=== PATIENT | male | born 1990 | race Caucasian/White ===

== ENCOUNTER → 2024-06-25 11:18 | Outpatient (BNVA) | payer OTHER, SELFPAY | DX: Z76.89 Persons encountering health services in other specified circumstances (principal) | CPT/HCPCS: 80053; 84443; 85025 ==

== ENCOUNTER 2025-10-18 11:45 | Emergency (ER) | payer BC, SELFPAY ==
[2025-10-18 11:47] VITALS: BP 151/98; PULSE 91; RESP 16; TEMP 36.7; O2SAT 98; BMI 32.1
--- NOTE | 2025-10-18 11:51 | USR_ITS ---
PROCEDURE INFORMATION: Exam: US Scrotum Exam date and time: 10/18/2025 12:30 PM Age: 35 years old Clinical indication: Scrotum pain. Left testicular pain. TECHNIQUE: Imaging protocol: Real-time ultrasound of the scrotum and contents with color Doppler and image documentation. COMPARISON: CT abdomen pelvis w con* [id number] 10/18/2025 12:10 PM FINDINGS: The right testis measures 4.8 x 1.9 x 2.8 cm. The right testicle is homogeneous without evidence of focal mass. The left testis measures 5.1 x 2.4 x 3.1 cm. The left testicle is homogeneous without evidence of focal mass. Small left hydrocele. The right epididymis measures 1.0 x 1.0 x 0.8 cm. The right epididymis is unremarkable without focal lesion. The left epididymis measures 1.1 x 1.2 x 0.9 cm. The left epididymis is slightly prominent without significant hyperemia. Doppler interrogation of the testicles reveals arterial blood flow. US/US scrotum [id number] IMPRESSION: 1. No evidence of testicular torsion or orchitis. 2. The left epididymis is slightly prominent without significant hyperemia. 3. Small left hydrocele.
--- NOTE | 2025-10-18 11:52 | CTR_ITS ---
PROCEDURE INFORMATION: Exam: CT Abdomen And Pelvis With Contrast Exam date and time: 10/18/2025 12:10 PM Age: 35 years old Clinical indication: Left flank abdominal pain. Prior appendectomy. Flank/testicular pain TECHNIQUE: Imaging protocol: Computed tomography of the abdomen and pelvis with contrast. Radiation optimization: All CT scans at this facility use at least one of these dose optimization techniques: automated exposure control; mA and/or kV adjustment per patient size (includes targeted exams where dose is matched to clinical indication); or iterative reconstruction. Contrast material: OMNIPAQUE 350; Contrast volume: 100 ml; Contrast route: INTRAVENOUS (IV); COMPARISON: No relevant prior studies available. RADIATION DOSE METRICS: Total DLP (mGy-cm): 253 FINDINGS: Lungs: Minimal scarring or atelectasis at the lung bases. Solid nodule in the left lower lobe measuring 6.6 mm. Solid nodule in the left lower lobe measuring 6.9 mm (image 4). Ground-glass nodule in the left lower lobe measuring 6.4 mm (image 4). Heart: No pericardial effusion. Diaphragm: No hiatal hernia. Liver: The liver is enlarged measuring 19.5 cm. Gallbladder and biliary ducts: The gallbladder is unremarkable. Pancreas: The pancreas is unremarkable. Spleen: The spleen is enlarged measuring 14.8 cm. Adrenal glands: The adrenal glands are unremarkable. Kidneys and ureters: The kidneys are unremarkable. Stomach and bowel: There is mild prominence of the wall of several small bowel loops in the left abdomen. This may reflect enteritis. Correlate clinically. The colon is unremarkable. Appendix: The appendix has been removed. Intraperitoneal space: No free intraperitoneal air is seen. Trace free fluid in the pelvis. Vasculature: No abdominal aortic aneurysm. Lymph nodes: No retroperitoneal lymphadenopathy. Urinary bladder: The bladder is unremarkable. Reproductive: The prostate measures 4.3 x 4.1 cm. Bones/joints: No acute fracture is seen. Soft tissues: Small fat containing umbilical hernia. CT/CT abdomen pelvis w con* [id number] IMPRESSION: 1. No nephrolithiasis, hydronephrosis or obstructive ureteral stone. 2. Mild prominence of the wall of several small bowel loops in the left abdomen. This may reflect enteritis. Correlate clinically. 3. Solid nodules in the left lower lobe measuring up to 6.9 mm. Ground-glass nodule in the left lower lobe measuring 6.4 mm. Given that these lung nodules are larger than 6 mm, Fleischner society guidelines for pulmonary nodules identified on incomplete CT chest do not apply. Recommended follow-up CT chest in 3 months to reassess. 4. Hepatosplenomegaly. 5. Trace free fluid.
--- NOTE | 2025-10-18 11:52 | W.ED.MALEGU ---
HPI - Male Genitourinary General: Chief complaint: Urogenital-Male Stated complaint: lt testicle pain Time Seen by Provider: 10/18/25 11:50 History of Present Illness: 35-year-old man With no significant past medical history who presents emergency room from urgent care with concern for flank, low abdomen and testicular pain. This started of some back pain about a week ago and he was treated as if it was musculoskeletal. However its worsened and is now progressed to where it hurts in his left groin and down into his left testicle so he was sent to the emergency room for further evaluation. No dysuria. No fever. No injuries. No altered mental status. No vomiting. Related Data Previous Rx's ?Medication ?Instructions ?Recorded ibuprofen 800 mg tablet 800 mg PO Q8H PRN pain #60 tabs 10/12/25 methocarbamol 750 mg tablet 750 mg PO Q8H PRN pain #30 tabs 10/12/25 prednisone 20 mg tablet 60 mg (3 x 20 mg) PO DAILY 5 days 10/12/25 #15 tabs azithromycin 500 mg tablet 500 mg PO DAILY 5 days #5 tabs 10/18/25 (Zithromax) diclofenac sodium 50 mg 50 mg PO BID PRN pain #14 tabs 10/18/25 tablet,delayed release prednisone 20 mg tablet 60 mg (3 x 20 mg) PO DAILY #20 tabs 10/18/25 Allergies Allergy/AdvReac Type Severity Reaction Status Date / Time No Known Allergies Allergy Verified 10/18/25 11:51 Review of Systems Narrative: Constitutional symptoms: Negative except as documented in HPI. Skin symptoms: Negative except as documented in HPI. Eye symptoms: Negative except as documented in HPI. ENMT symptoms: Negative except as documented in HPI. Respiratory symptoms: Negative except as documented in HPI. Cardiovascular symptoms: Negative except as documented in HPI. Gastrointestinal symptoms: Negative except as documented in HPI. Genitourinary symptoms: Negative except as documented in HPI. Musculoskeletal symptoms: Negative except as documented in HPI. Neurologic symptoms: Negative except as documented in HPI. Psychiatric symptoms: Negative except as documented in HPI. Endocrine symptoms: Negative except as documented in HPI. 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 Skin: Warm, dry. Head: Normocephalic, atraumatic. Neck: Supple, trachea midline. Eye: Extraocular movements are intact. Ears, nose, mouth and throat: mucosa moist. Cardiovascular: Regular, Normal peripheral perfusion. Respiratory: Lungs are clear to auscultation, respirations are non-labored, breath sounds are equal, Symmetrical chest wall expansion. Gastrointestinal: Soft, Nontender, Non distended Musculoskeletal: Normal ROM, no deformity. Neurological: Alert and oriented, No focal neurological deficit observed. Psychiatric: Cooperative, appropriate mood & affect. 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 I reviewed the patient's medical record. Patient was seen in urgent care earlier today. I reviewed the patient's current home meds Patient takes no chronic medications. Alternate historians: Dr. Fleming called before she sent the patient. Differential diagnosis including but not limited to and based on the above HPI, review of systems and physical exam: In this patient with flank pain would have concern for: Ureterolithiasis. Urinary tract infection. Appendicitis. Cholecystitis. Musculoskeletal / back pain. Pyelonephritis. Orders placed to evaluate differential diagnosis based on the above differential, HPI and physical exam Lab Review: Laboratory results were reviewed and interpreted by myself the emergency room physician. No leukocytosis. No anemia. No renal failure. Urinalysis has some mild hematuria. Perhaps the patient passed a kidney stone but no evidence of that now. Scrotal ultrasound: No evidence of any acute processes. See full note. This was reviewed and interpreted by myself the emergency room physician. I also reviewed the radiology report. CT of the abdomen pelvis: Nodules in the left lower lobe. This was discussed with the patient. No other acute findings. This was reviewed and interpreted by myself the emergency room physician. I also reviewed the radiology report. Assessment of risk: Level of risk: Low risk Hospitalization considerations: No indication for hospitalization Reexamination: Patient remained stable. No increased work of breathing. No altered mental status. No focal motor deficits. Assessment and plan: Flank pain - Discharged home - Discussed plan with patient. Answered any questions. - Evaluation and treatment of this problem were appropriate in the emergency setting. Lab Data 10/18/25 12:10/18/25 12:01 Radiology Impressions Scrotum Ultrasound 10/18/25 11:51 IMPRESSION: 1. No evidence of testicular torsion or orchitis. 2. The left epididymis is slightly prominent without significant hyperemia. 3. Small left hydrocele. Abdomen/Pelvis CT 10/18/25 11:52 IMPRESSION: 1. No nephrolithiasis, hydronephrosis or obstructive ureteral stone. 2. Mild prominence of the wall of several small bowel loops in the left abdomen. This may reflect enteritis. Correlate clinically. 3. Solid nodules in the left lower lobe measuring up to 6.9 mm. Ground-glass nodule in the left lower lobe measuring 6.4 mm. Given that these lung nodules are larger than 6 mm, Fleischner society guidelines for pulmonary nodules identified on incomplete CT chest do not apply. Recommended follow-up CT chest in 3 months to reassess. 4. Hepatosplenomegaly. 5. Trace free fluid. Laboratory Results WBC 5.26 10^3/uL (3.29-11.43) 10/18/25 12: RBC 5.29 10^6/uL (3.85-5.65) 10/18/25 12: Hgb 15.00 g/dL (11.27-16.99) 10/18/25 12:01 Hct 44.1 % (37-53) 10/18/25 12:01 MCV 83.4 fl (82-101) 10/18/25 12:01 MCH 28.4 pg (27-33) 10/18/25 12:01 MCHC 34.0 g/dL (30-55) 10/18/25 12:01 RDW 13.0 % (12.1-15.1) 10/18/25 12:01 Plt Count 192 10^3/cmm (157-399) 10/18/25 12:01 MPV 10.3 fL (7.4-10.4) 10/18/25 12:01 Neut % (Auto) 57.2 % 10/18/25 12:01 Lymph % (Auto) 21.5 % 10/18/25 12:01 [place] % (Auto) 13.5 % 10/18/25 12:01 Eos % (Auto) 5.9 % 10/18/25 12:01 Baso % (Auto) 1.1 % 10/18/25 12:01 Neut # (Auto) 3.01 10^3/uL (1.8-7.7) 10/18/25 12:01 Lymph # (Auto) 1.1 10^3/uL (0.8-4.8) 10/18/25 12:01 [place] # (Auto) 0.7 10^3/uL (0.2-0.9) 10/18/25 12:01 Eos # (Auto) 0.3 10^3/uL (0.0-0.8) 10/18/25 12:01 Baso # (Auto) 0.1 10^3/uL (0.0-0.1) 10/18/25 12:01 Nucleated RBC % (auto) 0 % 10/18/25 12:01 Nucleated RBCs # 0.0 /100WBC 10/18/25 12:01 Sodium 138 mmol/L (136-145) 10/18/25 12:01 Potassium 3.9 mmol/L (3.5-5.1) 10/18/25 12:01 Chloride 100 mmol/L (98-107) 10/18/25 12:01 Carbon Dioxide 26 mmol/L (22-29) 10/18/25 12:01 Anion Gap 15.9 (5-19) 10/18/25 12:01 BUN 7 mg/dL (6-20) 10/18/25 12:01 Creatinine 0.9 mg/dL (0.7-1.2) 10/18/25 12:01 GFR Calculation 96.0 mL/min (90-130) 10/18/25 12:01 Glucose 104 mg/dL (65-115) 10/18/25 12:01 Calculated Osmolality 284 mOsm/kg (285-295) L 10/18/25 12:01 Calcium 9.3 mg/dL (8.5-10.5) 10/18/25 12:01 Total Bilirubin 1.0 mg/dL (0.15-1.2) 10/18/25 12:01 AST 15 U/L (0-40) 10/18/25 12:01 ALT 14 U/L (0-41) 10/18/25 12:01 Alkaline Phosphatase 55 U/L (40-130) 10/18/25 12:01 C-Reactive Protein 25.7 mg/L (0.0-4.9) H 10/18/25 12:01 Total Protein 7.5 g/dL (6.6-8.7) 10/18/25 12:01 Albumin 4.7 g/dL (3.5-5.2) 10/18/25 12:01 Globulin 2.8 g/dL (1.3-4.6) 10/18/25 12:01 Urine Color Yellow (Yellow) 10/18/25 13:05 Urine Appearance Clear (CLEAR) 10/18/25 13:05 Urine pH 7.5 (5-7) 10/18/25 13:05 Ur Specific [place] 1.041 (1.005-1.030) H 10/18/25 13:05 Urine Protein Negative (Negative) 10/18/25 13:05 Urine Glucose (UA) Negative (Normal) 10/18/25 13:05 Urine Ketones Negative (Negative) 10/18/25 13:05 Urine Blood 2+ (Negative) A 10/18/25 13:05 Urine Nitrate Negative (Negative) 10/18/25 13:05 Urine Bilirubin Negative (Negative) 10/18/25 13:05 Urine Urobilinogen 0.2 mg/dL (Negative) 10/18/25 13:05 Ur Leukocyte Esterase Negative (Negative) 10/18/25 13:05 Urine RBC 6-10 /hpf (0-2) 10/18/25 13:05 Urine WBC 0-5 /hpf (0-5) 10/18/25 13:05 Ur Squamous Epith Cells 0-5 /hpf (0-5) 10/18/25 13:05 Amorphous Sediment Not Reportable 10/18/25 13:05 Urine Bacteria None seen /hpf (NONE) 10/18/25 13:05 Hyaline Casts 0-4 /lpf H 10/18/25 13:05 All radiology interpretation(s) finalized by discharge Discharge Plan Discharge Patient Disposition: Home Clinical Impression: Flank pain, Pulmonary nodule Condition: Stable Prescriptions: New prednisone 20 mg tablet 60 mg PO DAILY Qty: 20 0RF Rx Instructions: 3 tabs (60 mg) x 3 days. 2 tabs (40 mg) x 3 days. 1 tab (20 mg) x 3 days. 1/2 tab (10 mg) x 4 days diclofenac sodium 50 mg tablet,delayed release (DR/EC) 50 mg PO BID PRN (Reason: pain) Qty: 14 0RF No Action methocarbamol 750 mg tablet 750 mg PO Q8H PRN (Reason: pain) Qty: 30 0RF ibuprofen 800 mg tablet 800 mg PO Q8H PRN (Reason: pain) Qty: 60 0RF Rx Instructions: take with food prednisone 20 mg tablet 60 mg PO DAILY 5 Days Qty: 15 0RF azithromycin [Zithromax] 500 mg tablet 500 mg PO DAILY 5 Days Qty: 5 0RF Discharge Orders: Discharge ED (Routine); Ordered 10/18/25 Ordered By: Ligia Smith Referrals: Henna Alvarez NP [Primary Care Provider, Family Practice] Discharge Diet: Usual diet Discharge Activity: Increase activity as tolerated Patient Instructions: Flank Pain (ED), Opioid Safety, Pain Management, Patient Portal & Dylan Instructions Activity Restrictions/Additional Instructions: A pulmonary nodule was seen on imaging. This will need follow up imaging with your primary provider. Please schedule an appointment concerning this. Thank you for choosing [facility] for your healthcare needs today. You have been screened and evaluated and felt safe for discharge. Health conditions do change or evolve sometimes and as such it is important that you follow up with your Primary Doctor to be re checked, 3-5 days is a general good time frame for follow up. You are always welcome to return to the ED for re assessment if your symptoms are worsening or you have new concerns (Please note that included in your discharge packet is information concerning opioid safety and pain management. This information is given to all patients who are discharged from the ER regardless of their discharge diagnosis or the medicines they usually take or are prescribed.) Print Language: Nicaraguan Coding Level of Care Code ED Junior Accounting Clerk for Varun Holcomb
[2025-10-18 12:06] VITALS: O2SAT 98
[2025-10-18 12:09] LABS: Hematocrit 44.1 % (37-53); Hemoglobin 15.00 g/dL (11.27-16.99); Mean Corpuscular HGB Conc 34.0 g/dL (30-55); Mean Corpuscular Hemoglobin 28.4 pg (27-33); Mean Corpuscular Volume 83.4 fl (82-101); Nucleated Red Blood Cells % 0 %; Platelet Count 192 10^3/cmm (157-399); Red Blood Count 5.29 10^6/uL (3.85-5.65); White Blood Count 5.26 10^3/uL (3.29-11.43)
[2025-10-18] MEDS: iohexol 350 mg/mL 500 mL Btl (per mL) IV (12:13)
[2025-10-18 12:15] VITALS: BP 151/97
[2025-10-18 12:26] LABS: Alanine Aminotransferase 14 U/L (0-41); Albumin Level 4.7 g/dL (3.5-5.2); Alkaline Phosphatase 55 U/L (40-130); Anion Gap 15.9 (5-19); Aspartate Amino Transferase 15 U/L (0-40); Blood Urea Nitrogen 7 mg/dL (6-20); Calcium 9.3 mg/dL (8.5-10.5); Carbon Dioxide 26 mmol/L (22-29); Chloride 100 mmol/L (98-107); Globulin 2.8 g/dL (1.3-4.6); Glucose 104 mg/dL (65-115); Osmolality Calculated 284 mOsm/kg (285-295); Potassium 3.9 mmol/L (3.5-5.1); Sodium 138 mmol/L (136-145); Total Protein 7.5 g/dL (6.6-8.7)
[2025-10-18 12:30] VITALS: BP 148/103; PULSE 88; RESP 18; O2SAT 96
[2025-10-18 12:34] VITALS: BP 148/103
[2025-10-18 12:45] VITALS: BP 148/103
[2025-10-18 13:13] LABS: Glucose Urine UA Negative (Normal); Nitrate Urine Negative (Negative)
[2025-10-18 13:21] LABS: Specific Gravity, Urine 1.041 (1.005-1.030)
== END 2025-10-18 14:05 | disposition home or self-care (01) ==
PROVIDERS: Emergency Provider Emergency Medicine
DX: R10.A0 Flank pain, unspecified side (principal); R91.1 Solitary pulmonary nodule; F17.220 Nicotine dependence, chewing tobacco, uncomplicated
CPT/HCPCS: 36415; 74177; 76870; 80053; 81001; 85025; 86140; 99285